=== PATIENT | male | born 1975 | race Caucasian/White ===

== ENCOUNTER 2023-05-06 10:57 | Emergency (ER) | payer OTHER, SELFPAY ==
[2023-05-06 11:16] VITALS: BP 135/91; PULSE 79; RESP 18; TEMP 36.5; O2SAT 99
--- NOTE | 2023-05-06 11:17 | ED.URI ---
HPI - URI/Sore Throat General Chief Complaint: Upper Respiratory Infection Stated Complaint: sorethroat Time Seen by Provider: 05/06/23 11:21 History of Present Illness HPI Narrative: 47-year-old male presented for complaint of sore/itchy throat and headache. Onset yesterday. Endorses eyes are itchy, and reports puffiness to the inside corner of the right eye. Denies painful swallow or difficulty maintaining secretions. Took DayQuil today. Denies sick contacts. Denies cough, sob, wheezing, n/v/d/f/c. Related Data Home Medications Medication Instructions Recorded Confirmed meloxicam 15 mg tablet 15 mg PO DAILY 05/06/23 05/06/23 omeprazole 20 mg capsule,delayed 20 mg PO DAILY 05/06/23 05/06/23 release Allergies Allergy/AdvReac Type Severity Reaction Status Date / Time amoxicillin Allergy Unknown Hives Verified 05/06/23 11:19 Sulfa (Sulfonamide Allergy Unknown Hives Verified 05/06/23 11:19 Antibiotics) Review of Systems Review of Systems: CONSTITUTIONAL: Denies body aches, fever, chills, or sweats. EYES: Denies visual changes, redness, or discharge. ENT: Denies otalgia. Reports rhinorrhea, congestion, sore throat CARDIOVASCULAR: Denies chest pain, palpitations, or edema. RESPIRATORY: Denies dyspnea. GASTROINTESTINAL: Denies abdominal pain, nausea, vomiting, or diarrhea. SKIN: Denies rash, itching, or wounds. MUSCULOSKELETAL: Denies back pain, joint pain, or myalgia. NEUROLOGIC: Denies headache [facility] Past Medical History Medical History (Updated 05/06/23 @ 11:36 by Tara Larsen, ASSISTANT PROFESSOR) Ulcerative colitis Exam Narrative: GENERAL: mildly Ill-appearing, no acute distress. EYES: conjunctivae clear ENT: Mucous membranes moist. Nasal congestion. TMs pearly lopez with normal light reflex bilaterally; no tragal tenderness. Oropharynx erythematous without lesions. Tonsils enlarged 1+ and without exudate. No drooling, no hoarseness, no trismus, uvula midline. No tripod positioning, hot potato voice, or soft palate swelling. NECK: Supple. No lymphadenopathy CHEST: Clear to auscultation, breath sounds equal. No respiratory distress, speaks in full sentences. HEART: Regular rate and rhythm. No murmur heard. SKIN: Warm, dry, no rash. NEURO: Alert and oriented x3. Course Course Emergency Course: Patient is aware of diagnosis, understands and agrees to treatment plan. Anticipatory guidance given. Patient agrees to follow-up as directed and is aware of reasons to seek care at the emergency department. Portions of this record may have been created with voice recognition software Level of Care: Express Care Visit Vital Signs Vital signs: Vital Signs Temperature 97.7 F 05/06/23 11:16 Pulse Rate 79 05/06/23 11:16 Respiratory Rate 18 05/06/23 11:16 Blood Pressure 135/91 H 05/06/23 11:16 Pulse Oximetry 99 05/06/23 11:16 Oxygen Delivery Room Air 05/06/23 11:16 Temperature 97.7 F 05/06/23 11:16 Pulse Rate 79 05/06/23 11:16 Respiratory Rate 18 05/06/23 11:16 Blood Pressure 135/91 H 05/06/23 11:16 Pulse Oximetry 99 05/06/23 11:16 Oxygen Delivery Room Air 05/06/23 11:16 MDM - URI/Sore Throat MDM Narrative Medical decision making narrative: Test results reviewed with pt. POS covid. Advise supportive treatments. Patient is appropriate for outpatient treatment and follow-up. Differential Diagnosis Differential diagnosis: Likely upper respiratory infection, viral infection and pharyngitis Discharge Plan Discharge Clinical Impression: COVID-19 Patient Disposition: Home, Self-Care Condition: Stable Instructions: COVID-19 (Coronavirus Disease 2019) (ED) Additional Instructions: Your rapid COVID test was positive today. The following recommendations have been made by the CDC and local Health Departments, regarding COVID-19: -Those individuals with mild cases of COVID-19 can generally be discontinued from isolation 5 days AFTER the onset
== END 2023-05-06 11:44 | disposition home or self-care (01) ==
PROVIDERS: Emergency Provider Nurse Practitioner Family
DX: U07.1 COVID-19 (principal)
CPT/HCPCS: 87081; 87426; 87804; 87880; 99213; C9803; G0463

== ENCOUNTER 2023-11-16 09:09 | Emergency (ER) | payer OTHER, SELFPAY ==
[2023-11-16 09:19] VITALS: BP 137/94; PULSE 62; RESP 16; TEMP 36.6; O2SAT 100
--- NOTE | 2023-11-16 09:21 | ED.BACK ---
HPI - Back Pain/Injury General Chief Complaint: Back Pain/Injury Stated Complaint: Back Spasms Time Seen by Provider: 11/16/23 09:21 Source: patient and RN notes reviewed Mode of arrival: ambulatory Limitations: no limitations History of Present Illness HPI Narrative: 48-year-old male presents with left low back pain. He describes the pain as spasms. He denies any injury or trauma. Reports he has a history of similar spasms for which he has taken Flexeril with resolution. He denies decrease in strength. Denies loss of bowel or bladder function, perianal anesthesia, abdominal pain or fever. He has not taken anything for his symptoms MD elicited complaint: back pain Related Data Home Medications Medication Instructions Recorded Confirmed ofloxacin 0.3 % eye drops drp 11/16/23 valacyclovir 500 mg tablet mg 11/16/23 Allergies Allergy/AdvReac Type Severity Reaction Status Date / Time amoxicillin Allergy Unknown Hives Verified 05/06/23 11:19 Sulfa (Sulfonamide Allergy Unknown Hives Verified 05/06/23 11:19 Antibiotics) Review of Systems Review of Systems: CONSTITUTIONAL: Denies malaise, chills, sweats, or fever. CARDIOVASCULAR: Denies chest pain, palpitations, or edema. RESPIRATORY: Denies cough or dyspnea. GASTROINTESTINAL: Denies abdominal pain, nausea, vomiting, diarrhea, loss of bowel function GENITOURINARY: Denies dysuria, hematuria, frequency, loss of bladder function. SKIN: Denies rash or itching. MUSCULOSKELETAL: Reports left low back pain and spasms NEUROLOGIC: Denies numbness, weakness, or headache. All systems reviewed & are unremarkable except as noted in HPI and below PMFSH Past Medical History Medical History (Updated 11/16/23 @ 09:29 by Radhika Lewis NP) Ulcerative colitis Comments At time of signature, agree with nursing past medical, surgical, social and family history. There is no relevant family history pertinent to the presenting complaint Exam Narrative: GENERAL: Well-appearing, well-nourished, and in no acute distress. HEAD: Normocephalic, atraumatic. EYES: PERRLA and EOMI. NECK: Supple. No lymphadenopathy. CHEST: Clear to auscultation. No respiratory distress. HEART: Regular rate and rhythm. Distal pulses palpable and equal, cap refill <3 seconds ABDOMEN: Soft, nontender, nondistended, normal active bowel sounds, no palpable or pulsatile masses. No CVA tenderness MUSCULOSKELETAL: Normal range of motion and strength in all extremities; 5/5 strength with hip flexion and extension, dorsiflexion and extension, knee flexion and extension, plantar flexion and extension. Normal sensation in dermatomal distributions with sensitivity to light touch and pain. No midline back tenderness to palpation. No paraspinal tenderness. Transfers from lying to sitting to standing. SKIN: Warm, dry, no rash. No ecchymosis, erythema, open wounds to back. NEURO: No focal deficits. Alert and oriented x3. Reflexes intact. Normal gait. PSYCH: Normal mood and affect Course Course Emergency Course: Patient is aware of diagnosis, understands and agrees to treatment plan. Anticipatory guidance given. Patient agrees to follow-up as directed and is aware of reasons to seek care at the emergency department. Portions of this record may have been created with voice recognition software Level of Care: Express Care Visit Vital Signs Vital signs: Vital Signs Temperature 97.8 F 11/16/23 09:19 Pulse Rate 62 11/16/23 09:19 Respiratory Rate 16 11/16/23 09:19 Blood Pressure 137/94 H 11/16/23 09:19 Pulse Oximetry 100 11/16/23 09:19 Oxygen Delivery Room Air 11/16/23 09:19 Temperature 97.8 F 11/16/23 09:19 Pulse Rate 62 11/16/23 09:19 Respiratory Rate 16 11/16/23 09:19 Blood Pressure 137/94 H 11/16/23 09:19 Pulse Oximetry 100 11/16/23 09:19 Oxygen Delivery Room Air 11/16/23 09:19 Reviewed. MDM - Back Pain/Injury MDM Narrative Medical decision making narrati
== END 2023-11-16 09:37 | disposition home or self-care (01) ==
PROVIDERS: Emergency Provider Nurse Practitioner; PCP Physician Assistant
DX: M54.50 Low back pain, unspecified (principal)
CPT/HCPCS: 99213; G0463